=== PATIENT | female | born 1940 | race Caucasian/White ===

== ENCOUNTER 2020-12-02 21:30 | Observation (INO) ==
[2020-12-03] MEDS ORDERED: Naloxone 0.4 MG/ML INJ IVP PRN (02:21)
[2020-12-03] MEDS ORDERED: Ondansetron 4 MG/2 ML VIAL IVP PRN (02:21)
[2020-12-03] MEDS ORDERED: *HR* Heparin 5,000 UNIT/ML VIAL IVP PRN ×2 (02:25)
[2020-12-03] MEDS ORDERED: *HR* Heparin 5,000 UNIT/ML VIAL IVP ONE (02:25)
[2020-12-03] MEDS ORDERED: Heparin 25,000UNIT/250ML 1/2NS 25,000 UNIT/250 ML IV.SOLN IVC SCH (02:30)
[2020-12-03] MEDS: Azithromycin 500 MG in 0.9 % Sodium Chloride 250 ML IVPB SCH (03:35)
[2020-12-03] MEDS: 0.9 % Sodium Chloride 1,000 ML IVC SCH ×2 (03:35→13:28)
[2020-12-03 03:54] LABS: Basophils % 0.1 %; Hematocrit 36.9 % (35.3-44.9); Hemoglobin 12.8 g/dL (11.5-15.4); Immature Granulocytes % 0.7 % (0-4); Lymphocytes # 4.7 K/mcL (0.6-4.6); Lymphocytes % 53.7 %; Mean Corpuscular HGB Conc 34.7 g/dL (31.6-35.5); Mean Corpuscular Hemoglobin 32.7 pg (28.0-33.3); Mean Corpuscular Volume 94.4 fL (83.0-100.0); Mean Platelet Volume 10.5 fL (9.4-12.4); Monocytes # 0.1 K/mcL (0.0-1.3); Neutrophils # 3.9 K/mcL (1.6-8.9); Platelet Count 153 K/mcL (140-400); Red Blood Count 3.91 M/mcL (3.82-4.97); Red Cell Distribution Width 12.8 % (11.5-14.5); Segmented Neutrophils % 44.5 %; White Blood Count 8.7 K/mcL (4.3-11.1)
[2020-12-03 03:56] LABS: Hematocrit 37.8 % (35.3-44.9); Hemoglobin 12.6 g/dL (11.5-15.4); Mean Corpuscular HGB Conc 33.3 g/dL (31.6-35.5); Mean Corpuscular Hemoglobin 31.6 pg (28.0-33.3); Mean Corpuscular Volume 94.7 fL (83.0-100.0); Mean Platelet Volume 10.4 fL (9.4-12.4); Platelet Count 153 K/mcL (140-400); Red Blood Count 3.99 M/mcL (3.82-4.97); Red Cell Distribution Width 12.6 % (11.5-14.5); White Blood Count 8.7 K/mcL (4.3-11.1)
[2020-12-03 04:08] LABS: INR 1.9; Prothrombin Time 21.3 Seconds (9.4-12.1)
[2020-12-03 04:19] LABS: Heparin anti-factor XA UFH 1.83 IU/mL (0.30-0.70)
[2020-12-03 04:21] LABS: Albumin 3.5 g/dL (3.5-5.7); Albumin/Globulin Ratio 1.2 (1.1-2.2); Bilirubin,Total 0.9 mg/dL (0.3-1.0); Calcium 8.8 mg/dL (8.6-10.3); Chol/HDL Ratio 4.8 (0-4.9); Potassium 3.7 mEq/L (3.5-5.1); Total Protein 6.5 g/dL (6.4-8.9)
[2020-12-03 04:36] LABS: Estimated Average Glucose 123 mg/dl; Hemoglobin A1C 5.9 %
[2020-12-03 05:13] LABS: Anisocytosis 1+ (Not Present); Platelet Estimate Normal (Normal)
[2020-12-03] MEDS ORDERED: DilTIAZem CD (24hr) 180 MG CAP.ER.24H PO SCH (09:00)
[2020-12-03] MEDS: cefTRIAXone 1,000 MG in Water for inj. (sterile) 10 ML IVP SCH (09:54)
[2020-12-03] MEDS: Metoprolol XL (24 HR) Succ 50 MG TAB.ER.24H PO SCH ×2 (09:56→20:12)
[2020-12-03] MEDS: Aspirin 81 MG TAB.CHEW PO SCH (09:57)
[2020-12-03] MEDS: Furosemide 40 MG TABLET PO SCH ×2 (09:57→17:59)
[2020-12-03] MEDS ORDERED: Perflutren Lipid Microsphere 1.3 ML in 0.9 % Sodium Chloride 8.7 ML IVP PRN ×2 (11:36→11:55)
[2020-12-03] MEDS ORDERED: DilTIAZem CD (24hr) 120 MG CAP.ER.24H PO ONE (12:37)
[2020-12-04 01:38] LABS: Albumin 3.6 g/dL (3.5-5.7); Albumin/Globulin Ratio 1.2 (1.1-2.2); Bilirubin,Total 0.7 mg/dL (0.3-1.0); Calcium 8.9 mg/dL (8.6-10.3); Potassium 3.7 mEq/L (3.5-5.1); Total Protein 6.6 g/dL (6.4-8.9)
[2020-12-04 01:39] LABS: Hematocrit 36.7 % (35.3-44.9); Hemoglobin 12.3 g/dL (11.5-15.4); Mean Corpuscular HGB Conc 33.5 g/dL (31.6-35.5); Mean Corpuscular Hemoglobin 31.4 pg (28.0-33.3); Mean Corpuscular Volume 93.6 fL (83.0-100.0); Mean Platelet Volume 10.5 fL (9.4-12.4); Platelet Count 179 K/mcL (140-400); Red Blood Count 3.92 M/mcL (3.82-4.97); Red Cell Distribution Width 12.9 % (11.5-14.5)
[2020-12-04] MEDS ORDERED: Heparin 25,000UNIT/250ML 1/2NS 25,000 UNIT/250 ML IV.SOLN IVC SCH (02:15)
[2020-12-04] MEDS: Azithromycin 500 MG in 0.9 % Sodium Chloride 250 ML IVPB SCH (03:04)
[2020-12-04 05:20] VITALS: TEMP 97.6
[2020-12-04] MEDS ORDERED: CefTRIAXone 1,000 MG VIAL ONE (08:24)
[2020-12-04] MEDS: Aspirin 81 MG TAB.CHEW PO SCH (08:30)
[2020-12-04] MEDS: Metoprolol XL (24 HR) Succ 50 MG TAB.ER.24H PO SCH (08:30)
[2020-12-04] MEDS: Furosemide 40 MG TABLET PO SCH (08:30)
[2020-12-04] MEDS: cefTRIAXone 1,000 MG in Water for inj. (sterile) 10 ML IVP SCH (08:31)
[2020-12-04] MEDS ORDERED: DilTIAZem CD (24hr) 240 MG CAP.ER.24H PO SCH (09:00)
[2020-12-04 10:07] VITALS: BP 114/64; PULSE 74; O2SAT 95
[2020-12-04] MEDS ORDERED: Apixaban 5 MG TABLET PO SCH (21:00)
== END 2020-12-04 18:01 | disposition home or self-care (01) ==
LOC: 3NENU → SUATTDRO 12-03 00:57
PROVIDERS: ADMIT Internal Medicine; ATTEND Registered Nurse

== ENCOUNTER 2021-05-13 17:43 | Inpatient (IN) ==
[2021-05-13] MEDS ORDERED: Ondansetron 4 MG/2 ML VIAL IVP PRN (20:41)
[2021-05-13] MEDS ORDERED: Naloxone 0.4 MG/ML INJ IVP PRN (20:41)
[2021-05-13] MEDS ORDERED: Apixaban 5 MG TABLET PO SCH (23:15)
[2021-05-13] MEDS ORDERED: 0.9 % Sodium Chloride 1,000 ML IVC SCH (23:15)
[2021-05-13] MEDS: Metoprolol XL (24 HR) Succ 50 MG TAB.ER.24H PO SCH (23:28)
[2021-05-14 00:57] LABS: Hemoglobin 11.3 g/dL (11.5-15.4)
[2021-05-14 01:03] LABS: Prothrombin Time 21.8 Seconds (9.4-12.1)
[2021-05-14 01:17] LABS: Calcium 8.3 mg/dL (8.6-10.3); Chol/HDL Ratio 5.5 (0-4.9); Potassium 3.5 mEq/L (3.5-5.1)
[2021-05-14 01:23] LABS: Troponin I 0.48 ng/mL (< 0.04)
[2021-05-14 01:36] LABS: Mean Corpuscular Volume 93.6 fL (83.0-100.0); Mean Platelet Volume 11.1 fL (9.4-12.4)
[2021-05-14 01:38] LABS: Hematocrit 33.8 % (35.3-44.9); Immature Platelets 3.8 % (1.1-6.1); Mean Corpuscular HGB Conc 33.4 g/dL (31.6-35.5); Mean Corpuscular Hemoglobin 31.3 pg (28.0-33.3); Red Blood Count 3.61 M/mcL (3.82-4.97); Red Cell Distribution Width 13.4 % (11.5-14.5); White Blood Count 7.3 K/mcL (4.3-11.1)
[2021-05-14] MEDS ORDERED: *HR* Heparin 5,000 UNIT/ML VIAL IVP ONE (07:47)
[2021-05-14] MEDS ORDERED: *HR* Heparin 5,000 UNIT/ML VIAL IVP PRN ×2 (07:47)
[2021-05-14] MEDS ORDERED: Heparin 25,000UNIT/250ML 1/2NS 25,000 UNIT/250 ML IV.SOLN IVC SCH (08:00)
[2021-05-14] MEDS: Furosemide 40 MG TABLET PO SCH (08:07)
[2021-05-14] MEDS: DilTIAZem CD (24hr) 180 MG CAP.ER.24H PO SCH (08:07)
[2021-05-14] MEDS: Aspirin 81 MG TAB.CHEW PO SCH (08:08)
[2021-05-14 08:46] LABS: INR 1.9; Prothrombin Time 21.2 Seconds (9.4-12.1)
[2021-05-14 08:50] LABS: Heparin anti-factor XA UFH > 2.00 IU/mL (0.30-0.70)
[2021-05-14] MEDS ORDERED: cefTRIAXone 1,000 MG in 0.9 % Sodium Chloride 10 ML IVP SCH (09:00)
[2021-05-14 09:32] LABS: Activated Partial Thrombo Time 38.9 Seconds (26.0-36.0)
[2021-05-14] MEDS: Metoprolol XL (24 HR) Succ 50 MG TAB.ER.24H PO SCH ×2 (10:58→20:15)
[2021-05-14] MEDS ORDERED: Perflutren Lipid Microsphere 1.3 ML in 0.9 % Sodium Chloride 8.7 ML IVP PRN (11:35)
[2021-05-14] MEDS: Heparin 25,000UNIT/250ML 1/2NS 25,000 UNIT/250 ML IV.SOLN IVC SCH (12:21)
[2021-05-14] MEDS: Piperacillin/Tazobactam 3.375 GM in 0.9 % Sodium Chloride Mini Bag 100 ML IVPB SCH ×2 (13:19→20:15)
[2021-05-15 01:06] LABS: Basophils % 0.2 %; Eosinophils # 0.1 K/mcL (0.0-0.6); Eosinophils % 0.6 %; Hematocrit 31.8 % (35.3-44.9); Hemoglobin 10.8 g/dL (11.5-15.4); Immature Granulocytes % 0.7 % (0-4); Lymphocytes # 3.4 K/mcL (0.6-4.6); Lymphocytes % 39.5 %; Mean Corpuscular Hemoglobin 31.9 pg (28.0-33.3); Mean Corpuscular Volume 93.8 fL (83.0-100.0); Mean Platelet Volume 10.8 fL (9.4-12.4); Monocytes # 0.6 K/mcL (0.0-1.3); Monocytes % 6.9 %; Neutrophils # 4.5 K/mcL (1.6-8.9); Platelet Count 103 K/mcL (140-400); Red Blood Count 3.39 M/mcL (3.82-4.97); Red Cell Distribution Width 13.7 % (11.5-14.5); Segmented Neutrophils % 52.1 %; White Blood Count 8.6 K/mcL (4.3-11.1)
[2021-05-15 01:26] LABS: Calcium 8.2 mg/dL (8.6-10.3); Magnesium 2.1 mg/dL (1.6-2.6); Phosphorous 2.5 mg/dL (2.7-4.5); Potassium 3.2 mEq/L (3.5-5.1)
[2021-05-15] MEDS: Piperacillin/Tazobactam 3.375 GM in 0.9 % Sodium Chloride Mini Bag 100 ML IVPB SCH (03:20)
[2021-05-15] MEDS ORDERED: Regadenoson 0.4 MG/5 ML SYRINGE IVP ONE (10:10)
[2021-05-15] MEDS: DilTIAZem CD (24hr) 180 MG CAP.ER.24H PO SCH (13:29)
[2021-05-15] MEDS: Aspirin 81 MG TAB.CHEW PO SCH (13:29)
[2021-05-15] MEDS: Metoprolol XL (24 HR) Succ 50 MG TAB.ER.24H PO SCH ×2 (13:30→19:34)
[2021-05-15] MEDS: Furosemide 40 MG TABLET PO SCH (13:30)
[2021-05-15] MEDS: Heparin 25,000UNIT/250ML 1/2NS 25,000 UNIT/250 ML IV.SOLN IVC SCH ×2 (17:59)
[2021-05-15] MEDS ORDERED: Acetaminophen 325 MG TABLET PO ONE (22:23)
[2021-05-16 02:16] LABS: Hemoglobin 10.5 g/dL (11.5-15.4); Red Cell Distribution Width 13.7 % (11.5-14.5)
[2021-05-16 02:18] LABS: Hematocrit 31.8 % (35.3-44.9); Immature Platelets 3.5 % (1.1-6.1); Mean Corpuscular Hemoglobin 31.1 pg (28.0-33.3); Mean Corpuscular Volume 94.1 fL (83.0-100.0); Mean Platelet Volume 10.6 fL (9.4-12.4); Red Blood Count 3.38 M/mcL (3.82-4.97)
[2021-05-16 02:36] LABS: Calcium 8.7 mg/dL (8.6-10.3); Potassium 3.3 mEq/L (3.5-5.1)
[2021-05-16] MEDS: Piperacillin/Tazobactam 3.375 GM in 0.9 % Sodium Chloride Mini Bag 100 ML IVPB SCH (07:00)
[2021-05-16] MEDS: Furosemide 40 MG TABLET PO SCH (09:17)
[2021-05-16] MEDS: cefTRIAXone 1,000 MG in 0.9 % Sodium Chloride 10 ML IVP SCH (09:17)
[2021-05-16] MEDS: Metoprolol XL (24 HR) Succ 50 MG TAB.ER.24H PO SCH ×2 (09:17→19:57)
[2021-05-16] MEDS: Aspirin 81 MG TAB.CHEW PO SCH (09:17)
[2021-05-16] MEDS: DilTIAZem CD (24hr) 180 MG CAP.ER.24H PO SCH (09:17)
[2021-05-17] MEDS: Heparin 25,000UNIT/250ML 1/2NS 25,000 UNIT/250 ML IV.SOLN IVC SCH (01:48)
[2021-05-17 02:17] LABS: Basophils % 0.3 %; Eosinophils # 0.1 K/mcL (0.0-0.6); Eosinophils % 1.1 %; Hemoglobin 10.6 g/dL (11.5-15.4); Immature Granulocytes % 1.7 % (0-4); Lymphocytes # 3.1 K/mcL (0.6-4.6); Lymphocytes % 48.2 %; Mean Corpuscular HGB Conc 33.1 g/dL (31.6-35.5); Mean Corpuscular Hemoglobin 31.5 pg (28.0-33.3); Mean Corpuscular Volume 95.2 fL (83.0-100.0); Mean Platelet Volume 10.7 fL (9.4-12.4); Monocytes # 0.5 K/mcL (0.0-1.3); Monocytes % 6.9 %; Neutrophils # 2.7 K/mcL (1.6-8.9); Platelet Count 113 K/mcL (140-400); Red Blood Count 3.36 M/mcL (3.82-4.97); Red Cell Distribution Width 13.9 % (11.5-14.5); Segmented Neutrophils % 41.8 %; White Blood Count 6.5 K/mcL (4.3-11.1)
[2021-05-17 02:37] LABS: Potassium 3.7 mEq/L (3.5-5.1)
[2021-05-17] MEDS ORDERED: 0.9 % Sodium Chloride 1,000 ML IVC SCH (07:30)
[2021-05-17 08:41] LABS: INR 1.2
[2021-05-17] MEDS: DilTIAZem CD (24hr) 180 MG CAP.ER.24H PO SCH (08:52)
[2021-05-17] MEDS: Metoprolol XL (24 HR) Succ 50 MG TAB.ER.24H PO SCH ×2 (08:52→20:59)
[2021-05-17] MEDS: Aspirin 81 MG TAB.CHEW PO SCH (08:53)
[2021-05-17] MEDS: cefTRIAXone 1,000 MG in 0.9 % Sodium Chloride 10 ML IVP SCH (08:53)
[2021-05-17] MEDS: *HR* Digoxin 0.125 MG TABLET PO SCH (08:53)
[2021-05-17] MEDS ORDERED: ISOVUE-370 200 ML INFUS..BTL ONE ×2 (13:24→14:59)
[2021-05-17] MEDS ORDERED: *HR* Heparin 10,000 UNIT/10 ML VIAL ONE (13:38)
[2021-05-17] MEDS ORDERED: 0.9 % Sodium Chloride 2,000 ML ONE (13:38)
[2021-05-17] MEDS ORDERED: Heparin 1,000 UNITS/500 mL 500 ML ONE (13:38)
[2021-05-17] MEDS ORDERED: Nitroglycerin 1,000 MCG/5 ML VIAL IV ONE (13:39)
[2021-05-17] MEDS ORDERED: *HR* Midazolam HCl 2 MG/2 ML VIAL ONE (14:07)
[2021-05-17] MEDS ORDERED: *HR* FentaNYL (PF) 100 MCG/2 ML VIAL ONE (14:07)
[2021-05-17] MEDS ORDERED: Tirofiban 12.5 MG/250ML 12.5 MG/250 ML BAG ONE (14:35)
[2021-05-17] MEDS ORDERED: Tirofiban 12.5 MG/250ML 12.5 MG/250 ML BAG IVC SCH (15:15)
[2021-05-18 06:38] VITALS: BP 123/67; PULSE 69; TEMP 97.5; O2SAT 95
[2021-05-18 08:03] LABS: Calcium 8.9 mg/dL (8.6-10.3); Magnesium 2.2 mg/dL (1.6-2.6); Phosphorous 3.6 mg/dL (2.7-4.5)
[2021-05-18] MEDS: Metoprolol XL (24 HR) Succ 50 MG TAB.ER.24H PO SCH (08:25)
[2021-05-18] MEDS: DilTIAZem CD (24hr) 180 MG CAP.ER.24H PO SCH (08:25)
[2021-05-18] MEDS: Aspirin 81 MG TAB.CHEW PO SCH (08:25)
[2021-05-18] MEDS: *HR* Digoxin 0.125 MG TABLET PO SCH (08:25)
[2021-05-18] MEDS: cefTRIAXone 1,000 MG in 0.9 % Sodium Chloride 10 ML IVP SCH (08:26)
[2021-05-18] MEDS ORDERED: Apixaban 5 MG TABLET PO SCH (09:00)
== END 2021-05-18 10:44 | disposition home health service (06) | DRG 247 ==
LOC: 3BNU → SUATTDRO 20:04
PROVIDERS: ADMIT Family Medicine; ATTEND Internal Medicine